=== PATIENT | female | born 1935 | race Caucasian/White ===

== ENCOUNTER 2022-02-08 08:51 | Emergency (ER) | payer MEDICARE, OTHER ==
[~2022-02-08] VITALS: Ht 162.6 cm; Wt 86.4 kg
[2022-02-08] MEDS ORDERED: GABA800T4 (09:11)
[2022-02-08] MEDS ORDERED: FURO40TA2 (09:11)
[2022-02-08] MEDS ORDERED: GLIP5TAB (09:11)
[2022-02-08] MEDS ORDERED: PARO30TA4 (09:11)
[2022-02-08] MEDS ORDERED: LOSA50TA28 (09:11)
[2022-02-08 10:04] LABS: RSV AMPLIFICATION NEGATIVE (NEGATIVE)
[2022-02-08] MEDS ORDERED: NS 1,000 ML IV ONE (11:15)
[2022-02-08 11:37] LABS: BASO % 0.3 % (0.0-1.0); EOS # 0.1 10^3/uL (0.0-0.5); EOS % 0.7 % (0.0-3.0); HEMATOCRIT 35.1 % (36.0-47.0); HEMOGLOBIN 11.8 g/dl (12.0-15.5); LYMPH # 1.8 10^3/uL (1.5-5.0); LYMPH % 24.7 % (24.0-44.0); MEAN CORPUSCULAR HEMOGLOBIN 31.1 pg (27.0-33.0); MEAN CORPUSCULAR HGB CONC 33.6 g/dl (32.0-36.5); MEAN CORPUSCULAR VOLUME 92.6 fl (80.0-96.0); MONO # 0.5 10^3/uL (0.0-0.8); MONO % 7.2 % (2.0-8.0); NEUTROPHILS # 4.7 10^3/uL (1.5-8.5); NEUTROPHILS % 66.8 % (36.0-66.0); PLATELET COUNT, AUTOMATED 195 10^3/uL (150-450); RED BLOOD COUNT 3.79 10^6/uL (4.00-5.40); WHITE BLOOD COUNT 7.1 10^3/uL (4.0-10.0)
[2022-02-08] MEDS ORDERED: ASPIRIN 81 MG CHEW TABLET PO ONE (13:20)
[2022-02-08 13:28] LABS: ALBUMIN 3.7 GM/DL (3.2-5.2); BILIRUBIN,DIRECT 0.3 MG/DL (0.0-0.2); BILIRUBIN,TOTAL 1.1 MG/DL (0.2-1.0); CALCIUM LEVEL 9.2 MG/DL (8.8-10.2); CREATININE FOR GFR 0.96 MG/DL (0.55-1.30); GLOMERULAR FILTRATION RATE 58.9 (>32); POTASSIUM SERUM 4.1 MEQ/L (3.5-5.1); TOTAL PROTEIN 7.3 GM/DL (6.4-8.2)
[2022-02-08] MEDS ORDERED: ISOVUE-370 76% 100ML VIAL As Ordered ONE (13:39)
[2022-02-08] MEDS ORDERED: DEXTROSE 50% 50 ML SYRINGE IV STA (13:41)
[2022-02-08] MEDS ORDERED: DEXTROSE 50% 50 ML SYRINGE As Ordered ONE (13:42)
[2022-02-08] MEDS ORDERED: DEXTROSE 50% 50 ML VIAL IV STA (13:44)
[2022-02-08 16:28] VITALS: BP 138/68
== END 2022-02-08 16:35 | disposition home or self-care (01) ==
LOC: M ED 08:51
DX: E11.65 Type 2 diabetes mellitus with hyperglycemia (principal); R19.7 Diarrhea, unspecified; E86.0 Dehydration; R09.81 Nasal congestion; K57.30 Diverticulosis of large intestine without perforation or abscess without bleeding; R10.9 Unspecified abdominal pain; R00.1 Bradycardia, unspecified; I25.2 Old myocardial infarction; I25.10 Atherosclerotic heart disease of native coronary artery without angina pectoris; K76.0 Fatty (change of) liver, not elsewhere classified; Z98.1 Arthrodesis status; Z88.0 Allergy status to penicillin; Z88.1 Allergy status to other antibiotic agents; Z88.2 Allergy status to sulfonamides; Z79.899 Other long term (current) drug therapy
CPT/HCPCS: 36415; 74021; 74177; 80048; 80076; 83605; 83690; 84484; 85025; 87040; 87631; 93005; 96360; 96361; 99284; Q9967